=== PATIENT | male | born 1960 | race Caucasian/White ===

== ENCOUNTER 2018-12-07 15:40 | Emergency (ER) | payer OTHER ==
--- NOTE | 2018-12-07 15:46 | PDOC ---
Rapid Medical Evaluation Time Seen by Provider: 12/07/18 15:43 Medical Evaluation: 12/07/18 15:43 I performed a brief in-person evaluation of this patient. 58-year-old male with IDDM and HTN presenting with left knee pain and inability to bear weight after hitting himself with a hammer. Left knee tender especially at medial aspect, unable to extend completely. I have ordered the following: X-ray Patient to proceed to FT for further evaluation. Discharge Disposition - Diagnosis Knee injury - Referrals - Patient Instructions - Post Discharge Activity
--- NOTE | 2018-12-07 16:07 | PDOC ---
History of Present Illness - General Chief Complaint: Pain, Acute Stated Complaint: LT KNEE PAIN Time Seen by Provider: 12/07/18 15:43 History Source: Patient - History of Present Illness Initial Comments: 12/07/18 16:07 58 year old male c/o left knee pain , reports that he accidentally hit the knee with a hammer prior to arrival. patient c/o pain to the knee with movement. PMHX: DM, HTN Past History - Past Medical History Allergies/Adverse Reactions: Allergies Allergy/AdvReac Type Severity Reaction Status Date / Time No Known Allergies Allergy Verified 12/07/18 16:05 Home Medications: Ambulatory Orders Ibuprofen 600 mg PO QID PRN #20 tablet 12/07/18 - Psycho Social/Smoking Cessation Hx Smoking History: Unknown if ever smoked Information on smoking cessation initiated: No Hx Alcohol Use: No Drug/Substance Use Hx: No Review of Systems - Review of Systems Able to Perform ROS?: Yes Is the patient limited Niuean proficient: No Constitutional: No: Symptoms Reported, See HPI, Chills, Diaphoresis, Fever, Loss of Appetite, Malaise, Night Sweats, Weakness, Weight Stable, Unintentional Wgt. Loss, Unexplained wgt Loss, Other Integumentary: Yes: Other (left knee pain) *Physical Exam - Vital Signs Last Vital Signs Temp Pulse Resp BP Pulse Ox 97.8 F 84 18 145/74 100 12/07/18 16:03 12/07/18 16:03 12/07/18 16:03 12/07/18 16:03 12/07/18 16:03 - Physical Exam General Appearance: Yes: Appropriately Dressed Extremity: positive: Normal Capillary Refill, Other (able to passively extent the left knee, abrasion to knee. and redness to laretal aspect of the knee) ED Progress Note - Progress Note Progress Note: 12/07/18 16:31 A: left knee pain P: knee xray pain knee immobilizer Discharge - Discharge Information Problems reviewed: Yes Clinical Impression/Diagnosis: Knee injury Qualifiers: Encounter type: initial encounter Laterality: left Qualified Code(s): S89.92XA - Unspecified injury of left lower leg, initial encounter Condition: Stable - Additional Discharge Information Prescriptions: Ibuprofen 600 mg PO QID PRN #20 tablet PRN Reason: Pain - Follow up/Referral Referrals: Crispin Britt MD [Staff Physician] - Call tomorrow - Patient Discharge Instructions Patient Printed Discharge Instructions: Knee Sprain Additional Instructions: Apply ice to the area for the first 24 hours. Take ibuprofen every 6 hours as needed for pain. Follow-up with an orthopedic doctor if symptoms persist. A referral was given to you today. Return to the emergency room for any worsening symptoms. - Post Discharge Activity Work/Back to School Note: Back to Work
[2018-12-07 16:16] VITALS: BP 145/74; PULSE 84; TEMP 97.8; BMI 27.8
[2018-12-07] MEDS ORDERED: IBUPROFEN 600 MG TABLET (FP) PO ONE ×2 (16:30→16:37)
[2018-12-07] MEDS ORDERED: DIPHTH,PERTUSS(ACELL),TET VAC 0.5 ML VIAL IM ONE (16:31)
[2018-12-07] MEDS ORDERED: DIPHTH,PERTUSS(ACELL),TET 0.5 ML DISP.SYRIN IM ONE (16:38)
== END 2018-12-07 17:23 | disposition home or self-care (01) ==
LOC: JERFT 15:40
PROC: 3E0234Z Introduction of Serum, Toxoid and Vaccine into Muscle, Percutaneous Approach (ICD-10-PCS; principal; 2018-12-07)
PROC: 2W3RXYZ Immobilization of Left Lower Leg using Other Device (ICD-10-PCS; 2018-12-07)
DX: S89.82XA Other specified injuries of left lower leg, initial encounter (principal); M25.562 Pain in left knee; W27.8XXA Contact with other nonpowered hand tool, initial encounter; Y93.H3 Activity, building and construction; Y92.69 Other specified industrial and construction area as the place of occurrence of the external cause; Y99.0 Civilian activity done for income or pay
CPT/HCPCS: 29530; 73562-TC-LT-FY; 90471; 99282-25

== ENCOUNTER 2019-12-30 04:30 | Day surgery (SDC) | payer OTHER ==
--- OUTSIDE RECORDS SUMMARY | 2019-12-20 15:56 | XMS ---
:1960 Author Organization [facility] Support Name Relationship Address Phone [facility] Unavailable [address] [place] [address] YUMIKO HOLCOMB SON [address] [phone] [place] [address] YUMIKO HOLCOMB Unavailable [address] [place] [address] Re-disclosure Warning The records that you are about to access may contain information from federally- assisted alcohol or drug abuse programs. If such information is present, then the following federally mandated warning applies: This information has been disclosed to you from records protected by federal confidentiality rules (42 CFR part 2). The federal rules prohibit you from making any further disclosure of this information unless further disclosure is expressly permitted by the written consent of the person to whom it pertains or as otherwise permitted by 42 CFR part 2. A general authorization for the release of medical or other information is NOT sufficient for this purpose. The Federal rules restrict any use of the information to criminally investigate or prosecute any alcohol or drug abuse patient.The records that you are about to access may contain highly sensitive health information, the redisclosure of which is protected by Article 27-F of the [facility] Public Health law. If you continue you may haveaccess to information: Regarding HIV / AIDS; Provided by facilities licensed or operated by the [facility] Office of Mental Health; or Provided by the [facility] Office for People With Developmental Disabilities. If such information is present, then the following [facility] mandated warning applies: This information has been disclosed to you from confidential records which are protected by state law. State law prohibits you from making any further disclosure of this information without the specific written consent of the person to whom it pertains, or as otherwise permitted by law. Any unauthorized further disclosure in violation of state law may result in a fine or [place] [facility] sentence or both. A general authorization for the release of medical or other information is NOT sufficient authorization for further disclosure. Encounters Encounter Providers Location Date Indications Data Source(s ) Outpatient [facility] 11/14/2018 eCW3 ([facility] A28 12:00:00 AM [facility] Care) EDT - 11/14/2018 12:00:00 AM EDT Immunizations Vaccine Date Status Description Data Source(s) New in 2011. IIV4 11/14/2018 03:56:00 completed eC W3 ([facility]) Medications Medication Brand Start Product Dose Route Administrative Pharmacy [facility] Indications Reaction Description Data Name Date Form Instructions Instructions Source(s) Diclofenac Diclof .0 active Diclofen ac eCW3 Sodium 0.03 2018 {appl Sodium 3 % ( [facility] on[facility]to Health Diclofenac EDT _affe Care) Sodium 3 % cted_ area} Diclofenac Diclof .0 active Diclofen ac eCW3 Sodium 0.03 2018 {appl Sodium 3 % ( [facility] MG/MG Sodium 12:00: [facility] Topical Gel 3 % 00 AM on_to Health Diclofenac EDT _affe Care) Sodium 3 % cted_ area} Tamsulosin Tamsul active Tamsulosin eCW3 hydrochlori osin HCl 0.4 MG (H udson de 0.4 MG HCl River Oral 0.4 MG [facility] Care) Tamsulosin HCl 0.4 MG Insurance Providers Payer name Policy type Policy ID Covered Covered alliance party's Policy P jesus / Coverage alliance party ID relationship to Saab Inf ormation type saab MVP ESSENTIAL [id number] SP [id number] PLAN 1 2 [place] [id number] [place] [id number] O Problems, Conditions, and Diagnoses Code Display Name Description Problem Type Effective Dates Data Source(s) Z76.0 Medicine refill Medicine refill Problem 08/13/2019 eCW3 ([place] 12:00:00 AM [facility]) I10 Hypertension, Hypertension, Problem 02/12/2019 eCW3 (Hu dson unspecified type unspecified type 12:00:00 AM [facility]) I10 Hypertension, Hypertension, Problem 02/12/2019 eCW3 (Hu dson unspecified type unspecified type 12:00:00 AM [facility]) Social History Code Duration Value Status Description Data Source(s ) Smoking 08/13/2019 12:00:00 Former Smoker completed Former Smoker eCW3 ([facility]) Smoking 05/14/2019 12:00:00 Former Smoker completed Former Smoker eCW3 ([facility]) Vital Signs ID Date Data Source UNK Name Value Range Interpretation Code Description Data Source(s) Diastolic blood 55 mm[Hg] 55 mm[Hg] eCW3 ([facility]) Systolic blood 119 mm[Hg] 119 mm[Hg] eCW3 ([facility]) Body temperature 98.1 [degF] 98.1 [degF] eCW3 ( [facility]) Heart rate 20 /min 20 /min eCW3 ([facility]) Body mass index 27.58 kg/m2 27.58 kg/m2 eCW3 (H udson (BMI) [Ratio] [facility]) Body weight 152 [lb_av] 152 [lb_av] eCW3 ([facility]) Body height 62.25 [in_i] 62.25 [in_i] eCW3 ([facility]) Patient Treatment Plan of Care Planned Activity Planned Date Details Description Data Source (s) Diclofenac Sodium 0.03 11/14/2018 12:00:00 eCW3 ([facility] MG/MG Topical Gel [facility])
[2019-12-27 09:59] VITALS: BMI 28.1
--- OUTSIDE RECORDS SUMMARY | 2019-12-30 04:33 | XMS ---
:1960 Author Organization [facility] Support Name Relationship Address Phone [facility] Unavailable [address] [place] [address] YUMIKO HOLCOMB SON [address] [place] [address] YUMIKO HOLCOMB Unavailable [address] [place] [address] Re-disclosure Warning The records that you are [...] is protected by Article 27-F of the [facility] Public Health law. If you continue you may haveaccess to information: Regarding HIV / AIDS; Provided by facilities licensed or operated by the [facility] Office of Mental Health; or Provided by the [facility] Office for People With Developmental Disabilities. If such information is present, then the following [facility] mandated warning applies: This information has [...] law may result in a fine or fci sentence or both. A general authorization for the release of medical or other information is NOT sufficient authorization for further disclosure. Encounters Encounter Providers Location Date Indications Data Source(s ) Out[facility] 11/14/2018 eCW3 ([facility] A28 12:00:00 AM [facility]) EDT - 11/14/2018 12:00:00 AM EDT Immunizations Vaccine Date Status Description Data Source(s) New in 2011. IIV4 11/14/2018 03:56:00 completed eC W3 ([facility]) Medications Medication Brand Start Product Dose Route Administrative Pharmacy [facility] Indications Reaction Description Data Name Date Form Instructions Instructions Source(s) Diclofenac Diclof .0 active Diclofen ac eCW3 Sodium 0.03 2018 {appl Sodium 3 % ( [facility] on_to Health Diclofenac EDT _affe Care) Sodium 3 % cted_ area} Diclofenac Diclof .0 active Diclofen ac eCW3 Sodium 0.03 2018 {appl Sodium 3 % ( [place] MG/MG Sodium 12:00: [facility] Topical Gel 3 % 00 AM on_to Health Diclofenac EDT _affe Care) Sodium 3 % cted_ area} Tamsulosin Tamsul active Tamsulosin eCW3 hydrochlori osin HCl 0.4 MG (H udson de 0.4 MG HCl River Oral 0.4 MG [facility] Care) Tamsulosin HCl 0.4 MG Insurance Providers Payer name Policy type Policy ID Covered Covered libertarian's Policy P jesus / Coverage libertarian ID relationship to Saab Inf ormation type saab MVP ESSENTIAL [id number] SP [id number] PLAN 1 2 [place] [id number] [place] [id number] O Problems, Conditions, and Diagnoses Code Display Name Description Problem Type Effective Dates Data Source(s) Z76.0 Medicine refill Medicine refill Problem 08/13/2019 eCW3 ([place] 12:00:00 AM [facility]) I10 Hypertension, Hypertension, Problem 02/12/2019 eCW3 ( dson unspecified type unspecified type 12:00:00 AM [facility]) I10 Hypertension, Hypertension, Problem 02/12/2019 eCW3 (Hu dson unspecified type unspecified type 12:00:00 AM [facility]) Results ID Date Data Source [id number] 12/26/2019 08:58:00 AM EDT [facility] Name Value Range Interpretation Description Data Sup porting Code Source(s) Document(s ) SARS [facility] coronavirus 2 RNA This lab was ordered by [facility] and reported by [facility]. Procedure Social History Code Duration Value Status Description Data Source(s ) Smoking 08/13/2019 12:00:00 Former Smoker completed Former Smoker eCW3 ([facility]) Smoking 05/14/2019 12:00:00 Former Smoker completed Former Smoker eCW3 ([facility]) Vital Signs ID Date Data Source UNK Name Value Range Interpretation Code Description Data Source(s) Diastolic blood 55 mm[Hg] 55 mm[Hg] eCW3 ([facility]) Systolic blood 119 mm[Hg] 119 mm[Hg] eCW3 ([facility]) Body temperature 98.1 [degF] 98.1 [degF] eCW3 ( [facility]) Heart rate 20 /min 20 /min eCW3 ([facility]) Body mass index 27.58 kg/m2 27.58 kg/m2 eCW3 ([facility] (BMI) [Ratio] [facility]) Body weight 152 [lb_av] 152 [lb_av] eCW3 ([facility]) Body height 62.25 [in_i] 62.25 [in_i] eCW3 ([facility]) Patient Treatment Plan of Care Planned Activity Planned Date Details Description Data Source (s) Diclofenac Sodium 0.03 11/14/2018 12:00:00 eCW3 ([facility] MG/MG Topical Gel [facility] e)
[2019-12-30] MEDS ORDERED: MIDAZOLAM HCL 2 MG/2 ML SINGLE DOSE VIAL ONE (11:24)
[2019-12-30 13:05] VITALS: BP 136/72; PULSE 68; TEMP 97.8
--- NOTE | 2019-12-30 16:17 | OP ---
Operative Note - Note: Operative Date: 12/30/19 Pre-Operative Diagnosis: Left renal stone Operation: Left ESWL Findings: 5 mm lower pole Left renal stone Surgeon: Faheem Cox Anesthesia: Regional Estimated Blood Loss (mls): 0 Operative Report Dictated: Yes
--- NOTE | 2019-12-30 19:30 | OP ---
DATE OF OPERATION: 12/30/2019 PREOPERATIVE DIAGNOSIS: Left renal stone. POSTOPERATIVE DIAGNOSIS: Left renal stone. PROCEDURE: Left extracorporeal shockwave lithotripsy. ATTENDING: Kadi Cox M.D. ANESTHESIA: Fractional. DESCRIPTION OF PROCEDURE: Patient was brought in the operating room, placed in a supine position on the operating room table. Ultrasonography and fluoroscopy were performed. A 5-mm left lower pole stone was identified. Anesthesia and preoperative antibiotics were then administered. Shockwave lithotripsy was then started. 2500 impulses at 17 joules of power were administered to the stone under realtime ultrasonography and fluoroscopy. No complications were noted. The patient tolerated the procedure very well. DISPOSITION: To recovery room. KADI DOYLE M.D. [id number]
== END 2019-12-30 13:20 | disposition home or self-care (01) ==
LOC: JASU-SURG 04:30
PROVIDERS: ATTEND Urology
PROC: 0TF4XZZ Fragmentation in Left Kidney Pelvis, External Approach (ICD-10-PCS; principal; 2019-12-30 11:30)
DX: N20.0 Calculus of kidney (principal)
CPT/HCPCS: 82962

== ENCOUNTER 2020-04-20 04:23 | Day surgery (SDC) | payer OTHER ==
[2020-04-16 16:13] VITALS: BMI 29.0
[2020-04-20] MEDS ORDERED: MIDAZOLAM HCL 2 MG/2 ML SINGLE DOSE VIAL ONE ×2 (10:02→10:28)
[2020-04-20] MEDS ORDERED: PROPOFOL 20 ML ONE (10:03)
[2020-04-20 11:51] VITALS: BP 139/77; PULSE 72; TEMP 97.3
== END 2020-04-20 11:50 | disposition home or self-care (01) ==
LOC: JASU-SURG 04:23
PROVIDERS: ATTEND Urology
PROC: 0TF3XZZ Fragmentation in Right Kidney Pelvis, External Approach (ICD-10-PCS; principal; 2020-04-20 09:30)
DX: N20.0 Calculus of kidney (principal); E11.9 Type 2 diabetes mellitus without complications

== ENCOUNTER 2021-06-28 04:24 | Day surgery (SDC) | payer OTHER ==
[2021-06-24 10:13] VITALS: BMI 28.0
[2021-06-28] MEDS ORDERED: ONDANSETRON 4 MG/2 ML VIAL ONE (08:10)
[2021-06-28] MEDS ORDERED: MIDAZOLAM HCL 2 MG/2 ML SINGLE DOSE VIAL ONE (10:06)
[2021-06-28 13:31] VITALS: BP 142/74; PULSE 68; TEMP 98.2
== END 2021-06-28 12:10 | disposition home or self-care (01) ==
LOC: JASU-SURG 04:24
PROVIDERS: ATTEND Urology
PROC: 0TF3XZZ Fragmentation in Right Kidney Pelvis, External Approach (ICD-10-PCS; principal; 2021-06-28 10:00)
DX: N20.0 Calculus of kidney (principal)
CPT/HCPCS: 82962

== ENCOUNTER 2023-03-16 16:51 | Emergency (ER) | payer OTHER ==
[2023-03-16 17:03] VITALS: BP 114/57; PULSE 86; RESP 18; TEMP 98.9; BMI 28.1
[2023-03-16 18:41] LABS: BASO % 0.4 % (0-2.0); EOS % 0.9 % (0-4.5); HEMATOCRIT 39.8 % (35.4-49); HEMOGLOBIN 13.5 GM/dL (11.7-16.9); LYMPH % 28.2 % (8-40); MCH 29.6 pg (25.7-33.7); MCHC 33.9 g/dl (32.0-35.9); MEAN CELL VOLUME 87.2 fl (80-96); MEAN PLT VOLUME 7.8 fl (7.5-11.1); MONO % 8.3 % (3.8-10.2); NEUT % 62.2 % (42.8-82.8); PLATELET COUNT 165 10^3/uL (134-434); RBC 4.57 M/mm3 (4.00-5.60); RDW 13.3 % (11.9-15.9); WHITE BLOOD COUNT 5.1 K/mm3 (4.0-10.0)
[2023-03-16 18:42] LABS: PH,URINE 5.5 (5.0-8.0); URINE APPEARANCE CLEAR; URINE BILIRUBIN NEGATIVE (NEGATIVE); URINE COLOR YELLOW; URINE GLUCOSE (UA) 3+ (NEGATIVE); URINE KETONE TRACE (NEGATIVE); URINE LEUK ESTERASE NEGATIVE (NEGATIVE); URINE NITRITE NEGATIVE (NEGATIVE); URINE PROTEIN NEGATIVE (NEGATIVE); URINE UROBILINOGEN 0.2 mg/dL (0.2-1.0)
[2023-03-16 18:58] LABS: INR 0.9 (0.83-1.09); PROTHROMBIN TIME (PATIENT) 10.5 SEC (9.7-13.0)
[2023-03-16 19:00] LABS: ACTIVATED PTT 30.4 SECONDS (25.2-36.5)
[2023-03-16 19:04] LABS: POTASSIUM 4.6 mmol/L (3.5-5.1)
[2023-03-16 19:09] LABS: ALBUMIN 3.4 g/dl (3.4-5.0); CALCIUM 8.4 mg/dL (8.5-10.1)
[2023-03-16 19:12] LABS: CREATININE 0.8 mg/dL (0.55-1.3)
[2023-03-16 19:14] LABS: BILIRUBIN,TOTAL 0.3 mg/dL (0.2-1); TOT PROT 6.7 g/dl (6.4-8.2)
[2023-03-16 19:21] LABS: BLOOD UREA NITROGEN 8.2 mg/dL (7-18)
== END 2023-03-16 23:55 | disposition home or self-care (01) ==
LOC: JER 16:51
DX: R07.81 Pleurodynia (principal); R07.89 Other chest pain; Z20.822 Contact with and (suspected) exposure to COVID-19
CPT/HCPCS: 0241U-QW; 36415; 71045-TC-FY; 71101-TC-RT-FY; 71275-TC; 80053; 81003; 84484; 85025; 85379; 85610; 85730; 87086; 93005; 93010; 99285-25